=== PATIENT | male | born 1995 | race Caucasian/White ===

== ENCOUNTER 2023-07-27 17:30 | Emergency (ER) | payer MEDICAID, SELFPAY ==
[2023-07-27 17:32] VITALS: BP 158/96; PULSE 101; RESP 18; TEMP 35.9; O2SAT 97
[2023-07-27 17:46] VITALS: BMI 56.3
--- NOTE | 2023-07-27 20:03 | EDS_ITS ---
HPI History of Present Illness Chief Complaint: Bite Informant: patient Narrative Narrative: Patient 27-year-old male no significant past medical history presenting with dog bite to his right thigh. Patient was playing soccer with his daughter when the ball rolled into the alley. There was a stray dog standing in the alley that he did not recognize. It did not have any collar on. Patient went to picker and sorter load and unload the soccer ball and started walking away when the dog bit the back of the patient's right leg and then ran off. No other injuries reported. No other complaints or concerns at this time. Patient is never received any rabies immunization. He does not know when his last tetanus was. Knows that he is allergic to amoxicillin or Augmentin. Tetanus Immunization: Unknown [facility] Home Medications doxycycline hyclate 100 mg capsule 100 mg PO BID #10 caps 07/27/23 [Rx Last Taken Unknown] Allergy/AdvReac Type Severity Reaction Status Date / Time amoxicillin [From Augmentin] Allergy Unknown NEEDS Verified 07/27/23 20:05 FOLLOW-UP clavulanic acid Allergy Unknown NEEDS Verified 07/27/23 20:05 [From Augmentin] FOLLOW-UP Social History Smoking Status: Never smoker ROS ROS ED Constitutional Constitutional ED: Denies chills or fever(s) Gastrointestinal Gastrointestinal: Denies nausea or vomiting Musculoskeletal Musculoskeletal: Reports other Details: right thigh pain Integumentary Reports Abrasions and other Details: dog bite to right thigh Neurologic Neurologic: Denies paresthesias or weakness Hematologic/Lymphatic Hematologic/Lymphatic: Denies easy bleeding or easy bruising EXAM Physical Exam Const Vital Signs: 07/27/23 17:32 Temperature 96.6 F L Temperature Source Temporal Pulse Rate 101 H Respiratory Rate 18 Blood Pressure 158/96 H Blood Pressure Mean 116 Pulse Ox 97 Oxygen Delivery Method Room Air Positive well nourished and well developed General Appearance ED: well developed and NAD HEENT atraumatic Chest Wall inspection of chest normal Resp normal respiratory effort Extremity full ROM General Extremety ED: Negative for deformity General Extremity: Negative for deformity Neuro oriented x3, moves all extremities and no focal motor deficits Psych mental status grossly normal Skin Skin Narrative: Dog bite to the right thigh. Patient has puncture wound over the medial distal thigh and proximal to that there is a 3 cm full-thickness gaping laceration with exposure of the subcu tissue. Surrounding that there is some superficial abrasions with no active bleeding. PROC Procedures Lacerations right thigh: Length: 1.38 in Depth: Sub Q Shape: Linear Prep: - (Alcohol prep) Laceration repair: Lidocaine, Local and Skin sutures (2) Irrigated (ml): 500 Number of Sutures/[place]: 2 Suture Information: Ethilon, Simple and 4-0 Comment: Loose approximation MDM MDM MDM Narrative Medical decision making narrative: Patient evaluated for dog bite to his right thigh. Laceration repair performed. See procedure note. In addition I will prophylax him for rabies given that it was an unprovoked dog bite from a stray dog without a collar tags on it. Majority of the immunoglobulin injected around the wound however about 3 cc (1200 units) did have to be injected IM. Patient tolerated all this well. Is placed on doxycycline as he does have an allergy to Augmentin. Given the nature of the injury only loose approximation is performed to help limit infection. Is given first dose in the emergency room. Is given return precautions and is started on the rabies vaccine series. No other injury or trauma. Discharged home in stable condition. Discharge Plan Triage Chief Complaint: Bite Other Complaint: Laceration ED Provider: Eloina Brandt Dx/Rx/DC Orders Clinical Impression: Need for [id number] (Tdap) vaccine, Dog bite of right thigh, Need for post exposure prophylaxis for rabies Instructions: Understanding Rabies, ED Dog Bite, ED Laceration Extremity Prescriptions: New doxycycline hyclate 100 mg capsule 100 mg PO BID Qty: 10 0RF Primary Care Provider: Joshua Bird MD Referrals: Joshua Bird MD [Other] Activity Restrictions/Additional Instructions: Sutures should be removed in 10 to 14 days. Please return to the ER as instruc william for the rest of the rabies vaccination series. Take antibiotics as prescribed. Disposition Disposition: Home, Self Care Discharge Date/Time: 07/27/23 21:56
[2023-07-27] MEDS: Doxycycline 100 MG CAPSULE PO (20:35)
[2023-07-27] MEDS: Ibuprofen 600 MG Tablet PO (20:35)
[2023-07-27] MEDS: Rabies Vaccine,Human Diploid 2.5 UNITS Vial IM (21:32)
[2023-07-27] MEDS: Rabies Immune Globulin/PF 300 UNIT/ML, 5 ML VIAL 3000 UNIT IM (21:46)
[2023-07-27] MEDS: Rabies Immune Globulin/PF 300 UNIT/ML, 1 ML VIAL 1200 UNIT IM (21:50)
--- NOTE | 2023-07-30 18:13 | ED.RN ---
PT CALLED INTO [facility], STATES HE IS ON HIS WAY AND WOULD LIKE HIS RABIES SHOT READY TO GIVE TO HIM. EXPLAINED PROCESS AND THAT HE WOULD NEED TO BE CHECKED IN FIRST. STATES HE WAS TOLD BY PHYSICIAN THAT THE SHOT COULD BE BROUGHT OUT TO HIS CAR AND GIVEN TO HIM. AGAIN EDUCATED ON PROCESS. PT BECOMES FRUSTRATED AND CONTINUES TO REPEAT THAT HE WAS TOLD IT WOULD BE AN IN AND OUT THING. EXPLAINED THAT HE NEEDS TO BE CHECKED IN FIRST, THEN SHOT WOULD BE PREPARED, AND IF DEPARTMENT IS BUSY, HIS SHOT COULD BE DELAYED LONGER. HE STATES WELL WHAT IF I DON'T GET THE SHOT, INFORMED THAT THIS NURSE WAS NOT EXACTLY SURE OF CONSEQUENCES OF NOT GETTING SHOT, BUT ONE OF THEM COULD BE THAT HE RUNS THE RISK OF GETTING RABIES SINCE HE DID NOT HAVE FULL SERIES. HE WAS UNHAPPY WITH ANSWER AND WANTED THIS NURSE TO FIND ANSWER, INFORMED THAT THIS NURSE WAS UNABLE, HE STATES YOU'RE KIND OF A FUCKING BITCH AREN'T YOU. THIS NURSE APOLOGIZED, TOLD HIM TO HAVE A NICE DAY, AND HUNG UP PHONE.
== END 2023-07-27 21:56 | disposition home or self-care (01) ==
PROVIDERS: Emergency Provider Emergency Medicine; Visit Provider Emergency Medicine
DX: S71.151A Open bite, right thigh, initial encounter (principal); Z20.3 Contact with and (suspected) exposure to rabies; Z23 Encounter for immunization; W54.0XXA Bitten by dog, initial encounter
CPT/HCPCS: 12002; 90675; 96372; 99284; 90375

== ENCOUNTER 2023-07-31 16:04 | Emergency (ER) | payer MEDICAID, SELFPAY ==
[2023-07-31 16:05] VITALS: BP 188/109; PULSE 106; RESP 14; O2SAT 98; BMI 36.5
[2023-07-31] MEDS: Rabies Vaccine,Human Diploid 2.5 UNITS Vial IM (16:28)
== END 2023-07-31 17:14 | disposition home or self-care (01) ==
LOC: ED 16:41
PROVIDERS: Emergency Provider Emergency Medicine
DX: Z23 Encounter for immunization (principal)
CPT/HCPCS: 90675; 96372

== ENCOUNTER 2023-08-04 17:19 | Outpatient (CLI) | payer MEDICAID, SELFPAY ==
[2023-08-04 17:22] VITALS: BMI 36.5
[2023-08-04] MEDS: Rabies Vaccine,Human Diploid 2.5 UNITS Vial IM (18:05)
== END 2023-08-04 19:01 | disposition home or self-care (01) ==
LOC: ED 20:42
DX: Z23 Encounter for immunization (principal)
CPT/HCPCS: 90675; 96372

== ENCOUNTER 2023-08-11 15:02 | Outpatient (CLI) | payer MEDICAID, SELFPAY ==
[2023-08-11] MEDS: Rabies Vaccine,Human Diploid 2.5 UNITS Vial IM (15:30)
[2023-08-11 15:33] VITALS: BP 178/86; PULSE 45; RESP 14; TEMP 36; O2SAT 95; BMI 29.7
== END 2023-08-11 16:59 | disposition home or self-care (01) ==
LOC: ED 18:05
DX: Z23 Encounter for immunization (principal)
CPT/HCPCS: 90675; 96372